=== PATIENT | female | born 1960 | race Caucasian/White ===

== ENCOUNTER 2017-02-22 21:10 | Emergency (ER) | payer BC, OTHER ==
--- NOTE | 2017-02-22 23:05 | EDM.PDOC ---
ED HPI GENERAL MEDICAL PROBLEM - General Chief Complaint: General Stated Complaint: SIDE PAIN Time Seen by Provider: 02/22/17 21:40 Source of Information: Reports: Patient History Limitations: Reports: No Limitations - History of Present Illness INITIAL COMMENTS - FREE TEXT/NARRATIVE: Patient is a 56 year old woman who had left total knee arthroplasty last week. She is on disability and she has been using a walker to walk the last 7 days. She has noticed some increased urination today and she started having a sharp stabbing pain in the left lower ribs tonight at 20:00 at a 7/10 level. She took pain meds and the pain was getting better to a 4-5/10 level by the time she got to the ED. No fever or chills, nausea or vomiting. 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, Other Medication(s) (Pain medications.) Left Lower Mid-Posterior Abdominal Pain Score (Numeric/FACES): 6 - Related Data Allergies Allergy/AdvReac Type Severity Reaction Status Date / Time venom-honey bee Allergy Unknown unknown Verified 02/02/15 03:18 [bee venom (honey bee)] Penicillins Allergy Difficulty Verified 02/02/15 03:18 Breathing Home Meds: Home Meds Aspirin [Adult Low Dose Aspirin EC] 325 mg PO BID 04/20/13 [History] Insulin Aspart [NovoLOG] 5 units SQ TID 04/20/13 [History] Hydrochlorothiazide/Lisinopril [Lisinopril-HCTZ 20-25 MG] 1 tab PO DAILY [History] atorvaSTATin [Lipitor] 20 mg PO BEDTIME 01/25/15 [History] metFORMIN [Glucophage] 500 mg PO BIDMEALS 01/25/15 [History] Apixaban [Eliquis] 2.5 mg PO BID 02/22/17 [History] Ondansetron [Zofran ODT] 4 mg PO ASDIRECTED PRN 02/22/17 [History] oxyCODONE 5 mg PO QID PRN 02/22/17 [History] traMADol [Ultram] 50 mg PO Q6H PRN 02/22/17 [History] Past Medical History Other Respiratory History: PT HAD SLEEP STUDY DONE THIS 2014 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 (See Below) Other OB/BYN History: vaginal hysterectomy Other Musculoskeletal History: NECK PAIN AND BOTH KNEE'S Endocrine/Metabolic History: Reports: Diabetes, Type I - Infectious Disease History Infectious Disease History: Reports: Chicken Pox, Measles - Past Surgical History GI Surgical History: Reports: Cholecystectomy Other Musculoskeletal Surgeries/Procedures:: LEFT KNEE SCOPE, RTK,L knee replaced 1 week ago Social & Family History - Family History Family Medical History: Noncontributory - Tobacco Use Smoking Status *Q: Former Smoker Years of Tobacco use: 10 Packs/Tins Daily: 2 Used Tobacco, but Quit: Yes Month Tobacco Last Used: unknown Second Hand Smoke Exposure: No - Caffeine Use Caffeine Use: Reports: Coffee Caffeine Use Comment: half pot daily - Alcohol Use Days Per Week of Alcohol Use: 0 - Recreational Drug Use Recreational Drug Use: No ED ROS GENERAL - Review of Systems Review Of Systems: See Below Constitutional: Reports: No Symptoms HEENT: Reports: No Symptoms Respiratory: Reports: No Symptoms Cardiovascular: Reports: No Symptoms Endocrine: Reports: No Symptoms GI/Abdominal: Reports: No Symptoms : Reports: Flank Pain (Left side on lower rib area.) Musculoskeletal: Reports: Other (Left lower rib pain.) Skin: Reports: No Symptoms Neurological: Reports: No Symptoms Psychiatric: Reports: No Symptoms Hematologic/Lymphatic: Reports: No Symptoms Immunologic: Reports: No Symptoms ED EXAM, GENERAL - Physical Exam Exam: See Below Exam Limited By: No Limitations General Appearance: Alert, WD/WN, No Apparent Distress Eye Exam: Bilateral Eye: EOMI, Normal Fundi, Normal Inspection, PERRL Ears: Normal External Exam, Normal Canal, Hearing Grossly Normal, Normal TMs Ear Exam: Bilateral Ear: Auricle Normal, Canal Normal, TM normal Nose: Normal Inspection, Normal Mucosa, No Blood Throat/Mouth: Normal Inspection, Normal Lips, Normal Teeth, Normal Gums, Normal Oropharynx, Normal Voice, No Airway Compromise Head: Atraumatic, Normocephalic Neck: Normal Inspection, Supple, Non-Tender, Full Range of Motion Respiratory/Chest: No Respiratory Distress, Lungs Clear, Normal Breath Sounds, No Accessory Muscle Use, Other (Pain over the left lower ribs that exactly reproduces the pain.) Cardiovascular: Normal Peripheral Pulses, Regular Rate, Rhythm, No Edema, No Gallop, No JVD, No Murmur, No Rub GI/Abdominal: Normal Bowel Sounds, Soft, Non-Tender, No Organomegaly, No Distention, No Abnormal Bruit, No Mass Back Exam: CVA Tenderness (L) Extremities: Normal Inspection, Normal Range of Motion, Non-Tender, Normal Capillary Refill, No Pedal Edema Neurological: Alert, Oriented, CN II-XII Intact, Normal Cognition, Normal Gait, Normal Reflexes, No Motor/Sensory Deficits Psychiatric: Normal Affect, Normal Mood Skin Exam: Warm, Dry, Intact, Normal Color, No Rash Lymphatic: No Adenopathy Course - Vital Signs Text/Narrative:: Uneventful ED course. Her pain level went down to a 2/10. All of her labs were normal, other than some elevated liver enzymes and alkaline phospatase. Her UA was normal and her CBC were normal. She has a costochondritis most likely and will take her Celebrex for that along with her pain meds. She will follow up with the orthopedist on 03-01-17 and she will see Dr. Mo early next week. Last Recorded V/S: Last Vital Signs Temp 36.4 C 02/22/17 21:25 Pulse 92 02/22/17 21:25 Resp 18 02/22/17 21:25 BP 180/84 H 02/22/17 21:25 Pulse Ox 92 L 02/22/17 21:25 - Orders/Labs/Meds Orders: Active Orders 24 hr Category Date Time Status COMPREHENSIVE METABOLIC PN,CMP [CHEM] Stat Lab 02/22/17 22:00 Results Labs: Laboratory Tests 02/22/17 02/22/17 02/22/17 Range/Units 22:00 22:00 22:00 WBC 9.1 (4.5-12.0) X10-3/uL RBC 4.13 (3.23-5.20) x10(6)uL Hgb 12.1 (11.5-15.5) g/dL Hct 35.8 (30.0-51.3) % MCV 86.7 (80-96) fL MCH 29.2 (27.7-33.6) pg MCHC 33.7 (32.2-35.4) g/dL RDW 13.8 (11.5-15.5) % Plt Count 417 H (125-369) X10(3)uL MPV 7.0 L (7.4-10.4) fL Neut % (Auto) 77.7 (46-82) % Lymph % (Auto) 9.4 L (13-37) % [place] % (Auto) 5.3 (4-12) % Eos % (Auto) 7 H (1.0-5.0) % Baso % (Auto) 1 (0-2) % Neut # (Auto) 7.0 (1.6-8.3) # Lymph # (Auto) 0.9 (0.6-5.0) # [place] # (Auto) 0.5 (0.0-1.3) # Eos # (Auto) 0.6 (0.0-0.8) # Baso # (Auto) 0.1 (0.0-0.2) # Sodium 137 (135-145) mmol/L Potassium 4.1 (3.5-5.3) mmol/L Chloride 100 (100-110) mmol/L Carbon Dioxide 31 (21-32) mmol/L Creatinine 1.1 H (0.55-1.02) mg/dL Est Cr Clr Drug Dosing 47.24 mL/min Estimated GFR (MDRD) 51 L (>60) BUN/Creatinine Ratio 10.9 (9-20) Glucose 126 H (80-116) mg/dL Calcium 9.8 (8.6-10.2) mg/dL Total Bilirubin 1.9 H (0.1-1.3) mg/dL AST 52 H (5-25) IU/L ALT 66 H (12-36) U/L Alkaline Phosphatase 324 H (56-112) IU/L Total Protein 7.8 (6.0-8.0) g/dL Albumin 3.5 (3.5-5.2) g/dL Globulin 4.3 g/dL Albumin/Globulin Ratio 0.8 Urine Color Yellow (YELLOW) Urine Appearance Clear (CLEAR) Urine pH 6.0 (5.0-6.5) Ur Specific [place] 1.010 (1.010-1.025) Urine Protein Negative (NEGATIVE) mg/dL Urine Glucose (UA) Normal (NEGATIVE) mg/dL Urine Ketones Negative (NEGATIVE) mg/dL Urine Occult Blood Negative (NEGATIVE) Urine Nitrite Negative (NEGATIVE) Urine Bilirubin Negative (NEGATIVE) Urine Urobilinogen 1 H (NEGATIVE) mg/dL Ur Leukocyte Esterase Negative (NEGATIVE) Urine RBC 0-5 (0) Urine WBC 0-5 (0) Ur Squamous Epith Cells Moderate H (NS,R,O) Urine Bacteria Few H (NS) Departure - Departure Time of Disposition: 23:12 Disposition: Home, Self-Care 01 Condition: Good Clinical Impression: Costochondritis, Left flank pain - Discharge Information Referrals: John England MD [Primary Care Provider] - - My Orders Last 24 Hours: My Active Orders 02/22/17 22:00 COMPREHENSIVE METABOLIC PN,CMP [CHEM] Stat - Assessment/Plan Last 24 Hours: My Active Orders 02/22/17 22:00 COMPREHENSIVE METABOLIC PN,CMP [CHEM] Stat
[2017-02-22 23:39] VITALS: BP 151/87
== END 2017-02-22 23:41 | disposition home or self-care (01) ==
LOC: FB.ED 21:10
DX: M94.0 Chondrocostal junction syndrome [Tietze] (principal); R10.9 Unspecified abdominal pain; E10.9 Type 1 diabetes mellitus without complications; Z87.891 Personal history of nicotine dependence; Z79.84 Long term (current) use of oral hypoglycemic drugs; Z79.82 Long term (current) use of aspirin; Z79.899 Other long term (current) drug therapy; Z88.0 Allergy status to penicillin; Z91.030 Bee allergy status; Z96.651 Presence of right artificial knee joint
CPT/HCPCS: 36415; 80053; 81001; 85025; 99284

== ENCOUNTER 2018-09-12 11:03 | Emergency (ER) | payer MEDICARE, OTHER ==
[2018-09-12] MEDS ORDERED: Sodium Chloride 0.9% 10 ML Syringe FLUSH PRN (11:19)
--- NOTE | 2018-09-12 11:29 | EDM.PDOC ---
ED HPI GENERAL MEDICAL PROBLEM - General Stated Complaint: dizziness Time Seen by Provider: 09/12/18 11:08 Source of Information: Reports: Patient History Limitations: Reports: No Limitations - History of Present Illness INITIAL COMMENTS - FREE TEXT/NARRATIVE: 58-year-old female who reports that she was sitting and talking to her grandchildren and developed a sudden onset of room spinning type dizziness ( felt like membrane was spinning) then she developed pain over the left side of her head that was a sharp pain and then she developed numbness along the left face with feelings of weakness in her left arm and left leg. She had no nausea or vomiting. No chest pain. No shortness of breath. She did have some blurry vision. The headache is still present now and she rates that pain as a 4/10. She does feel that her symptoms are a little bit better than when they began but she still feels very dizzy she still feels tingling along her left face. She presents via private vehicle and needed assistance walking to the vehicle and felt that her left leg was weak and that she might fall to the left. She feels that she is able to speak normally. She had no symptoms prior to this. She has never had symptoms like this before. There are no other associated signs or symptoms. There are no other modifying factors. 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 (see below) (Nothing) headACHE Pain Score (Numeric/FACES): 8 - Related Data Allergies Allergy/AdvReac Type Severity Reaction Status Date / Time venom-honey bee Allergy Unknown unknown Verified 09/12/18 11:42 [bee venom (honey bee)] Penicillins Allergy Difficulty Verified 09/12/18 11:42 Breathing Home Meds: Home Meds Aspirin [Adult Low Dose Aspirin EC] 325 mg PO BID 04/20/13 [History] Insulin Aspart [NovoLOG] 5 units SQ TID 04/20/13 [History] Hydrochlorothiazide/Lisinopril [Lisinopril-HCTZ 20-25 MG] 1 tab PO DAILY [History] atorvaSTATin [Lipitor] 20 mg PO BEDTIME 01/25/15 [History] metFORMIN [Glucophage] 500 mg PO BIDMEALS 01/25/15 [History] Past Medical History Cardiovascular History: Reports: High Cholesterol (On no meds secondary to elevated LFTs), Hypertension Musculoskeletal History: Reports: Arthritis Endocrine/Metabolic History: Reports: Diabetes, Type II - Infectious Disease History Infectious Disease History: Reports: Chicken Pox, Measles - Past Surgical History GI Surgical History: Reports: Cholecystectomy Female Surgical History: Reports: Hysterectomy (Vaginal) Musculoskeletal Surgical History: Reports: Arthroscopic Knee (Left knee arthroscopy), Knee Replacement (Bilateral total knee replacements) Social & Family History - Family History Family Medical History: Noncontributory - Tobacco Use Smoking Status *Q: Current Some Day Smoker - Caffeine Use Caffeine Use: Reports: Coffee Caffeine Use Comment: half pot daily - Alcohol Use Alcohol Use History: No - Living Situation & Occupation Living situation: Reports: (She is here with her .) ED ROS GENERAL - Review of Systems Review Of Systems: See Below Constitutional: Reports: No Symptoms HEENT: Reports: No Symptoms Respiratory: Reports: No Symptoms Cardiovascular: Reports: No Symptoms GI/Abdominal: Reports: No Symptoms : Reports: No Symptoms Musculoskeletal: Reports: No Symptoms Skin: Reports: No Symptoms Neurological: Reports: Dizziness, Headache, Weakness (Left-sided weakness upper and lower) Hematologic/Lymphatic: Reports: No Symptoms Immunologic: Reports: No Symptoms ED EXAM, NEURO - Physical Exam Exam: See Below Exam Limited By: No Limitations General Appearance: Alert, WD/WN, Moderate Distress, Other (Speech pattern is normal) Eye Exam: Bilateral Eye: EOMI, Normal Inspection, PERRL Ears: Normal External Exam Nose: Normal Inspection, Normal Mucosa, No Blood Throat/Mouth: Normal Inspection, Normal Oropharynx, Normal Voice, No Airway Compromise Head Exam: Atraumatic, Normocephalic Neck: Normal Inspection, Supple, Non-Tender, Full Range of Motion Respiratory/Chest: No Respiratory Distress, Lungs Clear, Normal Breath Sounds, No Accessory Muscle Use, Chest Non-Tender Cardiovascular: Normal Peripheral Pulses, Regular Rate, Rhythm, No JVD GI/Abdominal: Normal Bowel Sounds, Soft, Non-Tender, No Mass Neurological: Alert, Oriented x 3, Abnormal Motor (4/5 to left upper extremity. 4/5 to left lower extremity) EKG INTERPRETATION EKG Date: 09/12/18 Time: 11:24 Rhythm: NSR Rate (Beats/Min): 61 [place]: Normal P-Wave: Present QRS: Normal (She does have evidence of LVH) ST-T: Normal QT: Normal Comparison: No Change (Compared EKG performed on 02/17/2014 there is no change.) Course - Vital Signs Last Recorded V/S: Last Vital Signs Temp 37.2 C 09/12/18 11:10 Pulse 65 09/12/18 11:10 Resp 19 09/12/18 11:10 BP 145/77 H 09/12/18 11:10 Pulse Ox 99 09/12/18 11:10 - Orders/Labs/Meds Orders: Active Orders 24 hr Category Date Time Status Cardiac Monitoring [RC] .As Directed Care 09/12/18 11:19 Active EKG Documentation Completion [RC] ASDIRECTED Care 09/12/18 11:20 Active Ang Head [CT] Stat Exams 09/12/18 11:53 Ordered Ang Neck [CT] Stat Exams 09/12/18 11:53 Ordered Head wo Cont [CT] Stat Exams 09/12/18 11:09 Taken UA W/MICROSCOPIC [URIN] Stat Lab 09/12/18 11:22 Ordered Sodium Chloride 0.9% [Normal Saline] 1,000 ml Med 09/12/18 11:30 Active IV ASDIRECTED Sodium Chloride 0.9% [Saline Flush] Med 09/12/18 11:19 Active 10 ml FLUSH ASDIRECTED PRN Peripheral IV Insertion Adult [OM.PC] Routine Oth 09/12/18 11:19 Ordered EKG 12 Lead [EK] Routine Ther 09/12/18 11:19 Ordered Medication Orders Sodium Chloride (Normal Saline) 1,000 mls @ 0 mls/hr IV ASDIRECTED KEY Stop: 09/16/18 11:20 Last Admin: 09/12/18 11:28 Dose: 30 mls/hr Sodium Chloride (Saline Flush) 10 ml FLUSH ASDIRECTED PRN PRN Reason: Keep Vein Open Labs: Laboratory Tests 09/12/18 09/12/18 09/12/18 Range/Units 11:32 11:32 11:32 WBC 9.1 (4.5-12.0) X10-3/uL RBC 5.08 (3.23-5.20) x10(6)uL Hgb 15.7 H (11.5-15.5) g/dL Hct 45.8 D (30.0-51.3) % MCV 90.2 (80-96) fL MCH 30.9 (27.7-33.6) pg MCHC 34.2 (32.2-35.4) g/dL RDW 13.5 (11.5-15.5) % Plt Count 262 (125-369) X10(3)uL MPV 8.1 (7.4-10.4) fL Neut % (Auto) 67.3 (46-82) % Lymph % (Auto) 18.0 (13-37) % [place] % (Auto) 6.6 (4-12) % Eos % (Auto) 5 (1.0-5.0) % Baso % (Auto) 3 H (0-2) % Neut # (Auto) 6.1 (1.6-8.3) # Lymph # (Auto) 1.6 (0.6-5.0) # [place] # (Auto) 0.6 (0.0-1.3) # Eos # (Auto) 0.5 (0.0-0.8) # Baso # (Auto) 0.3 H (0.0-0.2) # PT 10.0 (8.7-11.1) INR 1.03 (0.89-1.13) APTT 27.4 (24.4-33.2) SECONDS Sodium 141 (135-145) mmol/L Potassium 3.4 L (3.5-5.3) mmol/L Chloride 102 (100-110) mmol/L Carbon Dioxide 26 (21-32) mmol/L BUN 19 H (7-18) mg/dL Creatinine 0.9 (0.55-1.02) mg/dL Est Cr Clr Drug Dosing 56.36 mL/min Estimated GFR (MDRD) > 60 (>60) BUN/Creatinine Ratio 21.1 H (9-20) Glucose 76 L (80-116) mg/dL Calcium 9.4 (8.6-10.2) mg/dL Total Bilirubin 0.9 (0.1-1.3) mg/dL AST 36 H D (5-25) IU/L ALT 61 H (12-36) U/L Alkaline Phosphatase 206 H (56-112) IU/L Total Protein 8.1 H (6.0-8.0) g/dL Albumin 3.9 (3.5-5.2) g/dL Globulin 4.2 g/dL Albumin/Globulin Ratio 0.9 Meds: Medications Generic Name Dose Route Start Last Admin Trade Name Freq PRN Reason Stop Dose Admin Sodium Chloride 1,000 mls @ 0 mls/hr 09/12/18 11:30 09/12/18 11:28 Normal Saline IV 09/16/18 11:20 30 mls/hr ASDIRECTED KEY Administration KVO Sodium Chloride 10 ml 09/12/18 11:19 Saline Flush FLUSH ASDIRECTED PRN Keep Vein Open Discontinued Medications Generic Name Dose Route Start Last Admin Trade Name Freq PRN Reason Stop Dose Admin Alteplase, Recombinant 8.4 mg 09/12/18 13:11 Activase IV 09/12/18 13:12 .BOLUS ONE Alteplase, Recombinant 74.4 mg 09/12/18 13:11 Activase IV 09/12/18 13:12 .INFUSION ONE Iopamidol 75 ml 09/12/18 12:04 Isovue-370 (76%) IV 09/12/18 12:05 ONETIME ONE Ondansetron HCl 4 mg 09/12/18 11:35 09/12/18 11:41 Zofran IVPUSH 09/12/18 11:36 4 mg ONETIME ONE Administration - Radiology Interpretation Free Text/Narrative:: CT of head without contrast shows bleeding and no stroke per the radiologist - Re-Assessments/Exams Free Text/Narrative Re-Assessment/Exam: 09/12/18 11:40: I discussed patient's case with Dr. Mann, stroke neurologist at [facility], and he recommends doing a CTA of the patient's head and neck rule out dissection and aneurysm. He recommends doing that before considering TPA. He would feel that the patient meets criteria for TPA if aneurysm and dissection and bleed is ruled out. 09/12/18 12:11: The patient is going over CTA of head and neck. She has remained neurologically unchanged with continued NIH stroke score of 7. I have discussed the risk and benefits of TPA with the patient and her . I have discussed the reason for doing the CTA of her head and neck and if this comes back negative, she would be a candidate for TPA treatment of her stroke and I have outlined the risk and benefits of giving TPA for stroke. We are awaiting the results of the CTA and the and patient are thinking about the alternatives. 09/12/18 13:15: CTA came back negative for dissection, aneurysm, stroke or bleed. Patient has been vitally stable and is awake and alert. Her NIH stroke scale score is now 5 in that her weakness in her arm and leg have improved somewhat. I again rediscussed the risk and benefits associated with TPA and the treatment of strokes. With the negative CTA I feel it is unlikely to be an aneurysm and I feel dissection is ruled out and bleed is extremely unlikely as well and based on my discussion with Dr. Mann recommendations, I recommended TPA treatment to the patient. Patient and her have discussed this and wished me to proceed with menstruation of TPA further treatment of her stroke. The nursing staff is in the process of proceeding with this now. 09/12/18 13:27: I rediscussed the patient with Dr. Mann and he is in agreement with the plan for TPA. He has referred me to Dr. Hernandez in the emergency department and Dr. Hernandez has agreed to accept the patient in transfer. The patient and her are in agreement with these plans will be transferred via ambulance to [facility] for admission to their ICU. ` Departure - Departure Time of Disposition: 13:40 Disposition: DC/Tfer to Acute Hospital 02 Condition: Critical Clinical Impression: Acute ischemic stroke - Discharge Information - My Orders Last 24 Hours: My Active Orders 09/12/18 11:09 Head wo Cont [CT] Stat 09/12/18 11:19 Cardiac Monitoring [RC] .As Directed Sodium Chloride 0.9% [Saline Flush] 10 ml FLUSH ASDIRECTED PRN Peripheral IV Insertion Adult [OM.PC] Routine EKG 12 Lead [EK] Routine 09/12/18 11:20 EKG Documentation Completion [RC] ASDIRECTED 09/12/18 11:22 UA W/MICROSCOPIC [URIN] Stat 09/12/18 11:30 Sodium Chloride 0.9% [Normal Saline] 1,000 ml IV ASDIRECTED 09/12/18 11:53 Ang Head [CT] Stat Ang Neck [CT] Stat - Assessment/Plan Last 24 Hours: My Active Orders 09/12/18 11:09 Head wo Cont [CT] Stat 09/12/18 11:19 Cardiac Monitoring [RC] .As Directed Sodium Chloride 0.9% [Saline Flush] 10 ml FLUSH ASDIRECTED PRN Peripheral IV Insertion Adult [OM.PC] Routine EKG 12 Lead [EK] Routine 09/12/18 11:20 EKG Documentation Completion [RC] ASDIRECTED 09/12/18 11:22 UA W/MICROSCOPIC [URIN] Stat 09/12/18 11:30 Sodium Chloride 0.9% [Normal Saline] 1,000 ml IV ASDIRECTED 09/12/18 11:53 Ang Head [CT] Stat Ang Neck [CT] Stat
[2018-09-12] MEDS ORDERED: Sodium Chloride 0.9% 1,000 ML IV SCH (11:30)
[2018-09-12] MEDS ORDERED: Ondansetron 4 MG/2 ML SDV IVPUSH ONE (11:35)
[2018-09-12] MEDS ORDERED: Iopamidol 755 Mg/ML 75 ML Bottle IV ONE (12:04)
[2018-09-12 12:12] VITALS: BP 145/77; PULSE 65
== END 2018-09-12 13:55 ==
LOC: FB.ED 11:03
DX: I63.9 Cerebral infarction, unspecified (principal); E78.00 Pure hypercholesterolemia, unspecified; E11.9 Type 2 diabetes mellitus without complications; F17.200 Nicotine dependence, unspecified, uncomplicated; R40.2412 Glasgow coma scale score 13-15, at arrival to emergency department; Z91.030 Bee allergy status; Z88.0 Allergy status to penicillin; Z79.899 Other long term (current) drug therapy; Z79.4 Long term (current) use of insulin
CPT/HCPCS: 36415; 70450; 70496; 70498; 80053; 81001; 82962; 85025; 85610; 85730; 93005; 93010; 96361; 96365; 96375; 99285; J2405; J2997; J7030; Q9967

== ENCOUNTER 2019-04-29 18:49 | Emergency (ER) | payer MEDICARE, OTHER ==
[2019-04-29] MEDS ORDERED: Albuterol 8 GM Inhaler INH ONE (18:50)
[2019-04-29] MEDS ORDERED: Azithromycin 250 MG Tab PO ONE (18:50)
[2019-04-29 19:12] VITALS: BP 146/69; PULSE 80
--- NOTE | 2019-04-29 19:21 | EDM.PDOC ---
ED HPI GENERAL MEDICAL PROBLEM - General Chief Complaint: Respiratory Problem Stated Complaint: DIFFICULTY BREATHING Time Seen by Provider: 04/29/19 19:15 Source of Information: Reports: Patient History Limitations: Reports: No Limitations - History of Present Illness INITIAL COMMENTS - FREE TEXT/NARRATIVE: Patient was referred to the ED from the clinic because of on and off cough x 1 month and dyspnea. She also have fever and chills. She was seen in the clinic and cxr, cbc, cmp,and influenza were all negative. chest Pain Score (Numeric/FACES): 4 - Related Data Allergies Allergy/AdvReac Type Severity Reaction Status Date / Time venom-honey bee Allergy Unknown unknown Verified 04/29/19 19:13 [bee venom (honey bee)] Penicillins Allergy Difficulty Verified 04/29/19 19:13 Breathing Home Meds: Home Meds Aspirin [Adult Low Dose Aspirin EC] 81 mg PO DAILY 04/29/19 [History] Insulin Detemir [Levemir] 50 unit SUBCUT DAILY 04/29/19 [History] Insulin NPH/Insulin Reg,Human [Novolin 70-30] 5 unit SUBCUT ASDIRECTED 04/29/19 [History] Lisinopril [Zestril] 20 mg PO DAILY 04/29/19 [History] metFORMIN [Glucophage] 500 mg PO BIDMEALS 04/29/19 [History] Past Medical History Cardiovascular History: Reports: High Cholesterol (On no meds secondary to elevated LFTs), Hypertension Other Respiratory History: PT HAD SLEEP STUDY DONE THIS 2014 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 (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) 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 Musculoskeletal History: Reports: Arthritis Other Musculoskeletal History: NECK PAIN AND BOTH KNEE'S Endocrine/Metabolic History: Reports: Diabetes, Type II - Infectious Disease History Infectious Disease History: Reports: Chicken Pox, Measles - Past Surgical History GI Surgical History: Reports: Cholecystectomy Female Surgical History: Reports: Hysterectomy (Vaginal) Musculoskeletal Surgical History: Reports: Arthroscopic Knee (Left knee arthroscopy), Knee Replacement (Bilateral total knee replacements) Social & Family History - Family History Family Medical History: Noncontributory - Caffeine Use Caffeine Use: Reports: Coffee Caffeine Use Comment: half pot daily - Living Situation & Occupation Living situation: Reports: (She is here with her .) ED ROS GENERAL - Review of Systems Review Of Systems: See Below Constitutional: Reports: Fever, Chills HEENT: Reports: No Symptoms Respiratory: Reports: Shortness of Breath, Cough. Denies: Wheezing Cardiovascular: Reports: No Symptoms Endocrine: Reports: No Symptoms GI/Abdominal: Reports: No Symptoms : Reports: No Symptoms Musculoskeletal: Reports: No Symptoms Skin: Reports: No Symptoms Neurological: Reports: No Symptoms Psychiatric: Reports: No Symptoms ED EXAM, GENERAL - Physical Exam Exam: See Below Exam Limited By: No Limitations General Appearance: Alert, No Apparent Distress Respiratory/Chest: No Respiratory Distress, Lungs Clear, Normal Breath Sounds, No Accessory Muscle Use, Chest Non-Tender Cardiovascular: Normal Peripheral Pulses, Regular Rate, Rhythm, No Edema GI/Abdominal: Normal Bowel Sounds, Soft, Non-Tender, No Organomegaly Extremities: Normal Inspection, Normal Range of Motion, Non-Tender Course - Vital Signs Text/Narrative:: her oxygen sat was actually 91% on RA and was breathing better after she was given 2 duonebs in the clinic. CXR-neg Last Recorded V/S: Last Vital Signs Temp 36.9 C 04/29/19 19:00 Pulse 80 04/29/19 19:00 Resp 18 04/29/19 19:00 BP 146/69 H 04/29/19 19:00 Pulse Ox 94 L 04/29/19 19:00 Departure - Departure Time of Disposition: 19:20 Disposition: Home, Self-Care 01 Condition: Good Clinical Impression: Acute bronchitis - Discharge Information Instructions: Acute Bronchitis, Adult Referrals: Randal Correa MD [Primary Care Provider] - Forms: ED Department Discharge Additional Instructions: please read discharge instructions on acute bronchitis increase oral fluids z-travis as directed albuterol inhaler 2 puffs every 4-6 hours as needed for difficulty of breathing follow up i8f symptoms persist Sepsis Event Note - Evaluation Sepsis Screening Result: No Definite Risk - Focused Exam Vital Signs: Vital Signs Temp Pulse Resp BP Pulse Ox 04/29/19 19:00 36.9 C 80 18 146/69 H 94 L Date Exam was Performed: 04/30/19 Time Exam was Performed: 00:08
== END 2019-04-29 19:25 | disposition home or self-care (01) ==
LOC: FB.ED 18:49
DX: J20.9 Acute bronchitis, unspecified (principal); I10 Essential (primary) hypertension; E11.9 Type 2 diabetes mellitus without complications; Z88.0 Allergy status to penicillin; Z91.030 Bee allergy status; Z79.82 Long term (current) use of aspirin; Z79.899 Other long term (current) drug therapy; Z79.4 Long term (current) use of insulin
CPT/HCPCS: 99284; A9270; 36415; 71046; 80053; 85025; 87804; 87804-59; 94640; 99202; 99283

== ENCOUNTER 2019-05-14 18:55 | Emergency (ER) | payer MEDICARE, OTHER ==
[2019-05-14] MEDS ORDERED: Ketorolac 30 MG/ML SDV IVPUSH ONE (19:21)
[2019-05-14] MEDS ORDERED: Morphine 2 MG/ML Syringe IVPUSH ONE (19:52)
[2019-05-14] MEDS ORDERED: Ondansetron 4 MG/2 ML SDV IVPUSH ONE (19:52)
--- NOTE | 2019-05-14 20:52 | EDM.PDOC ---
ED HPI GENERAL MEDICAL PROBLEM - General Chief Complaint: Upper Extremity Injury/Pain Time Seen by Provider: 05/14/19 20:00 Source of Information: Reports: Patient History Limitations: Reports: No Limitations - History of Present Illness INITIAL COMMENTS - FREE TEXT/NARRATIVE: c/o RUE pain fell at home, put out arm, landed on outstretched arm lives with who is here XR shows a surgical neck and greater tuberosity fx with impaction short arm splint applied immobilizing the elbow and adding right upper arm Pain Score (Numeric/FACES): 10 - Related Data Allergies Allergy/AdvReac Type Severity Reaction Status Date / Time venom-honey bee Allergy Unknown unknown Verified 05/14/19 19:06 [bee venom (honey bee)] Penicillins Allergy Difficulty Verified 05/14/19 19:06 Breathing Home Meds: Home Meds Aspirin [Adult Low Dose Aspirin EC] 81 mg PO DAILY 04/29/19 [History] Insulin Detemir [Levemir] 50 unit SUBCUT DAILY 04/29/19 [History] Insulin NPH/Insulin Reg,Human [Novolin 70-30] 5 unit SUBCUT ASDIRECTED 04/29/19 [History] Lisinopril [Zestril] 20 mg PO DAILY 04/29/19 [History] metFORMIN [Glucophage] 500 mg PO BIDMEALS 04/29/19 [History] Past Medical History Cardiovascular History: Reports: High Cholesterol, Hypertension Other Respiratory History: PT HAD SLEEP STUDY DONE 2014 [employer] OFFICER History: Reports: Other (See Below) Other [employer] OFFICER History: vaginal hysterectomy Musculoskeletal History: Reports: Arthritis Other Musculoskeletal History: NECK PAIN AND BOTH KNEE'S Endocrine/Metabolic History: Reports: Diabetes, Type II - Infectious Disease History Infectious Disease History: Reports: Chicken Pox, Measles - Past Surgical History GI Surgical History: Reports: Cholecystectomy Female Surgical History: Reports: Hysterectomy Musculoskeletal Surgical History: Reports: Arthroscopic Knee, Knee Replacement Social & Family History - Family History Family Medical History: Noncontributory - Tobacco Use Smoking Status *Q: Former Smoker Used Tobacco, but Quit: Yes Month/Year Tobacco Last Used: unable to remember - Caffeine Use Caffeine Use: Reports: None Caffeine Use Comment: half pot daily - Recreational Drug Use Recreational Drug Use: No - Living Situation & Occupation Living situation: Reports: (She is here with her .) ED ROS GENERAL - Review of Systems Review Of Systems: See Below Constitutional: Reports: No Symptoms HEENT: Reports: No Symptoms Respiratory: Reports: No Symptoms Cardiovascular: Reports: No Symptoms Endocrine: Reports: No Symptoms GI/Abdominal: Reports: No Symptoms : Reports: No Symptoms Musculoskeletal: Reports: Shoulder Pain, Arm Pain Skin: Reports: No Symptoms Neurological: Reports: No Symptoms Psychiatric: Reports: No Symptoms Hematologic/Lymphatic: Reports: No Symptoms Immunologic: Reports: No Symptoms ED EXAM, GENERAL - Physical Exam Exam: See Below Exam Limited By: Respiratory Distress General Appearance: WD/WN, No Apparent Distress Head: Atraumatic, Normocephalic Neck: Normal Inspection, Supple, Non-Tender, Full Range of Motion Respiratory/Chest: No Respiratory Distress Cardiovascular: Regular Rate, Rhythm Extremities: Other (holding RUE agaomst chest with elbow flexed 90 degrees, 2+ bounding radial pulse, good hand squueze, LT intact in hand) Psychiatric: Normal Affect, Normal Mood Skin Exam: Warm, Dry, Intact, Normal Color, No Rash Lymphatic: No Adenopathy Course - Vital Signs Last Recorded V/S: Last Vital Signs Temp Pulse 70 05/14/19 19:00 Resp 17 05/14/19 19:00 BP 149/79 H 05/14/19 19:00 Pulse Ox 93 L 05/14/19 19:00 - Orders/Labs/Meds Orders: Active Orders 24 hr Category Date Time Status Shoulder Comp Rt [CR] Stat Exams 05/14/19 19:08 Ordered Meds: Medications Discontinued Medications Generic Name Dose Route Start Last Admin Trade Name Freq PRN Reason Stop Dose Admin Ketorolac Tromethamine 30 mg 05/14/19 19:21 05/14/19 19:25 Toradol IVPUSH 05/14/19 19:22 30 mg ONETIME ONE Administration Morphine Sulfate 4 mg 05/14/19 19:52 05/14/19 19:00 Morphine IVPUSH 05/14/19 19:53 4 mg ONETIME ONE Administration Ondansetron HCl 4 mg 05/14/19 19:52 05/14/19 19:58 Zofran IVPUSH 05/14/19 19:53 4 mg ONETIME ONE Administration Departure - Departure Time of Disposition: 20:49 Disposition: Home, Self-Care 01 Condition: Good Clinical Impression: Right humeral fracture Qualifiers: Encounter type: initial encounter Humerus Location: surgical neck Fracture type : closed - Discharge Information *PRESCRIPTION DRUG MONITORING PROGRAM REVIEWED*: Not Applicable *COPY OF PRESCRIPTION DRUG MONITORING REPORT IN PATIENT DIPESH: Not Applicable Instructions: Humerus Fracture Treated With Immobilization, Cast or Splint Care , Adult Additional Instructions: For pain, take ibuprofen 200 mg 3 tabs and acetaminophen 500 mg 2 tabs 4 times a day for 2 days, longer if needed. For pain, take tramadol 50 mg 1 tab 4 times a day as needed. No alcohol. Use shoulder immobilizer both day and night. Try to allow the arm to hang as much as possible (a so-called [id number] ) See Dr Jerry in 5 days. You can call [phone] in order to schedule. Return to ED if you are feeling worse. Sepsis Event Note - Evaluation Sepsis Screening Result: No Definite Risk - Focused Exam Vital Signs: Vital Signs Pulse Resp BP Pulse Ox 05/14/19 19:00 70 17 149/79 H 93 L Date Exam was Performed: 05/14/19 Time Exam was Performed: 20:45 - My Orders Last 24 Hours: My Active Orders 05/14/19 19:08 Shoulder Comp Rt [CR] Stat - Assessment/Plan Last 24 Hours: My Active Orders 05/14/19 19:08 Shoulder Comp Rt [CR] Stat
[2019-05-14] MEDS ORDERED: traMADol 50 MG Tab PO ONE (20:56)
[2019-05-14 21:27] VITALS: BP 140/80; PULSE 54
== END 2019-05-14 21:08 | disposition home or self-care (01) ==
LOC: FB.ED 18:55
DX: S42.211A Unspecified displaced fracture of surgical neck of right humerus, initial encounter for closed fracture (principal); E11.9 Type 2 diabetes mellitus without complications; Z79.84 Long term (current) use of oral hypoglycemic drugs; Z79.82 Long term (current) use of aspirin; Z90.49 Acquired absence of other specified parts of digestive tract; Z90.710 Acquired absence of both cervix and uterus; Z87.891 Personal history of nicotine dependence; Z88.0 Allergy status to penicillin; Z91.030 Bee allergy status; Y92.009 Unspecified place in unspecified non-institutional (private) residence as the place of occurrence of the external cause
CPT/HCPCS: 73030; 96374; 96375; 99283; A9270; J1885; J2270; J2405